=== PATIENT | male | born 1945 | race Caucasian/White ===

== ENCOUNTER 2017-03-01 17:30 | Observation (INO) | payer MEDICARE, OTHER ==
[~2017-03-01] VITALS: Ht 160 cm; Wt 82.1 kg
--- NOTE | ~2017-03-01 | HP ---
PATIENT'S NAME: SHANEL LANDIN [facility] AGE: 71 Y [address] ROOM: [facility] [place] [place], [place] [address] LOCATION: GPCU ADMIT DATE: 03/01/2017 History & Physical DISCHARGE DATE: FAMILY PHYSICIAN: PHYSICIAN, UNKNOWN ATTENDING PHYSICIAN: Jeronimo HOUSTON DATE OF SERVICE: CHIEF COMPLAINT: Acute hypoxic respiratory failure. HISTORY OF PRESENTING ILLNESS: This 71-year-old white male with previous history of end-stage renal disease, on hemodialysis, and diabetes mellitus type 2, was transferred to [facility] from [place] with some vague complaints of malaise, altered mental status, and hypoxia. He first began to feel unwell on Monday. He describes some feelings of weakness and shortness of breath. He failed to show up for his dialysis appointment yesterday because he "just did not feel good." Symptoms persisted and today, he decided to go to the emergency room in [place] for definitive evaluation and management. On his arrival there, he was hypoxic with oxygen saturations in the 80s. This improved with some supplemental oxygen, but he also had a fever. Workup including CBC, chemistries, and chest x-ray were all fairly unremarkable. It was decided to transfer him here for higher level of care, definitive evaluation and management, and Nephrology consultation. On his arrival to the floor, he reports feeling "fine." He states he does not really know why he is here. He denies headache. Denies dizziness or lightheadedness. No chest pain. He denies any significant shortness of breath while lying in bed and no cough. No abdominal pain. His appetite has been good, and he reports feeling quite hungry now. Stools have been regular, and he stooled last yesterday. He has not noticed any blood in his stools or black tarry stools. He does void typically once or twice a day in small amounts. He has not noticed any dysuria, frequency, urgency, or hematuria. MEDICAL ALLERGIES: No known drug allergies. ILLNESSES: 1. End-stage renal disease, on hemodialysis. 2. Diabetes mellitus type 2, insulin dependent. 3. Essential hypertension. 4. Coronary artery disease. 5. Peripheral arterial disease. PATIENT'S NAME: [facility] AGE: 71 Y [address] ROOM: [address] [place], [place] [address] [facility] ADMIT DATE: 03/01/2017 History & Physical DISCHARGE DATE: FAMILY PHYSICIAN: PHYSICIAN, UNKNOWN ATTENDING PHYSICIAN: Jeronimo HOUSTON 6. BPH. 7. Peripheral neuropathy. CURRENT MEDICATIONS: 1. Amlodipine 5 mg p.o. daily. 2. Aspirin 81 mg p.o. daily. 3. PhosLo 667 two tablets p.o. t.i.d. 4. Tums 2 tablets p.o. b.i.d. 5. Coreg 6.25 p.o. b.i.d. 6. Vitamin D3 1000 units p.o. daily. 7. Dextrose tab 16 g p.o. daily p.r.n. 8. Iron 325 mg p.o. daily. 9. Minoa 5/325 one tablet p.o. q.4 hours p.r.n. pain. 10. Insulin NovoLog per sliding scale. 11. Insulin glargine 25 units subcu q.h.s. 12. MiraLax 17 g p.o. daily. 13. Lyrica 75 mg p.o. q.h.s. 14. Crestor 20 mg p.o. q.a.m. FAMILY HISTORY: Significant for colon cancer in his father. Mother had a stroke. SOCIAL HISTORY: He does have a 50+ pack year history of smoking, but he has been quit for about 5 years. No significant history of alcohol use. REVIEW OF SYSTEMS: As per HPI. All other organ systems reviewed and are negative. PHYSICAL EXAMINATION: VITAL SIGNS: Temperature 97.7, pulse 97, respirations 16, blood pressure 120/57. GENERAL: He is very pleasant, cooperative, lying in the bed, in no acute distress. SKIN: Supple, pink, warm, dry. No obvious rashes. HEENT: Otherwise, normocephalic. Sclerae nonicteric. Pupils equal, round, and reactive to light and accommodation. Extraocular movements appear intact. Nasal turbinates normal in appearance. Oropharynx clear. Mucous membranes are pink and moist. NECK: Supple. Plethoric. No masses. No adenopathy. No thyromegaly. No JVD. CHEST: Wall is symmetrical. HEART: Regular without murmurs. There are occasional extrasystoles. LUNGS: Diminished at the bases, but no crackles or wheezes are heard. ABDOMEN: Soft, nontender. Bowel sounds present. No mass or PATIENT'S NAME: SHANEL LANDIN [facility] AGE: 71 Y [address] ROOM: [address] [place], [place] [address] [facility]: [facility] ADMIT DATE: 03/01/2017 History & Physical DISCHARGE DATE: FAMILY PHYSICIAN: PHYSICIAN, UNKNOWN ATTENDING PHYSICIAN: Jeronimo HOUSTON hepatosplenomegaly. and RECTAL: Not done. EXTREMITIES: Display trace pitting edema. No cyanosis. NEUROLOGIC: He is a little hard of hearing, and mentation is slowed, but there are no focal deficits. LABORATORY AND X-RAY DATA: ABG revealed pH of 7.46, pCO2 of 42, pO2 of 73. CBC showed a white blood cell count 7.0, hemoglobin is 9.0, hematocrit 27, platelets 108. Chemistries revealed a BUN and creatinine of 95 and 5.48, sodium and potassium of 136 and 4.9, chloride and CO2 are 96 and 25, glucose was elevated at 526. AST and ALT of 22 and 29, bilirubin is 0.5. Lactate was normal at 1. Cardiac enzymes revealed a troponin of 0.07, CK-MB of 2.4. A 12-lead EKG showed electronic paced rhythm, left bundle branch block. No other acute abnormalities. Chest x-ray showed no acute abnormalities. ASSESSMENT AND PLAN: 1. Acute hypoxic respiratory failure, improved. Oxygen demands have already improved somewhat since the initial presentation. I suspect fluid overload probably related to his missed dialysis appointment. We will encourage good pulmonary hygiene. Continue with some supplemental oxygen and follow on telemetry tonight. 2. Acute encephalopathy. He was reportedly confused at his initial presentation but appears to be back at baseline now. I would attribute this to hypoxic encephalopathy, and we will continue with some supplemental oxygen as above and monitor. We will try to get him up and mobilize him tomorrow, and plan to resume dialysis. 3. End-stage renal disease, on hemodialysis. Plan for hemodialysis tomorrow with Nephrology. He does have some problems with his left AV fistula and was scheduled for a revision with Dr. Greene on Monday. Depending on his clinical progress, we will determine if it is necessary to have Dr. Greene see him while he is inpatient. 4. Diabetes mellitus type 2, insulin dependent. Continue with Levemir at h.s. and sliding scale insulin. 5. Essential hypertension. Appears to be adequately controlled. We will monitor the trend and make adjustments as necessary. 6. Coronary artery disease, clinically stable and otherwise asymptomatic. We will plan to continue with medical therapy and clinical monitoring. We will trend his cardiac enzymes tonight. 7. Deep venous thrombosis prophylaxis. We will utilize pneumatic compression devices, but hold off on heparin or Lovenox in light of the potential for AV fistula manipulation. PATIENT'S NAME: SHANEL LANDIN [facility] AGE: 71 Y [address] ROOM: [place] [address] [facility] ADMIT DATE: 03/01/2017 History & Physical DISCHARGE DATE: FAMILY PHYSICIAN: PHYSICIAN, UNKNOWN ATTENDING PHYSICIAN: Jeronimo HOUSTON MD JONATHAN MURRAY/wade /[id number] D: T: 805 HISTORY & PHYSICAL
--- NOTE | ~2017-03-01 | DS ---
PATIENT'S NAME: SHANEL LANDIN [facility] AGE: 71 Y [address] ROOM: [address] [place], [place] [address] LOCATION: GPCU ADMIT DATE: 03/01/2017 Discharge Summary DISCHARGE DATE: 03/03/2017 FAMILY PHYSICIAN: ATTENDING PHYSICIAN: Jeronimo HOUSTON FINAL DIAGNOSES: 1. Acute hypoxic respiratory failure. 2. Nocturnal hypoxia, which is present on admission. 3. Fever of unknown origin. 4. Diabetes mellitus type 2, poorly-controlled. 5. Lgcbdu-qk-qhbgajv disease. 6. Essential hypertension. HISTORY OF PRESENT ILLNESS: Please see the history and physical dictated by Dr. Gonzalez for details of admission. LABORATORY DATA: On the day of discharge, sodium 143, potassium 4.4, chloride 107, CO2 27, BUN 66, creatinine 4.2, and magnesium 2.7. Hemoglobin on admission was 9.9, went down to 7.8, and then on discharge day was 9.4, and platelet count on admission was 110. Procalcitonin on admission was 0.27. MICROBIOLOGY DATA: Blood cultures were negative. X-RAY DATA: Chest x-ray on the day of discharge showed some atelectasis in left base, but no acute findings. HOSPITAL COURSE: The patient was admitted on an observation status after being transferred from [place]. He had presented there short of breath and with acute hypoxic respiratory failure and had been started on oxygen. He had missed his dialysis on Monday due to a viral illness and he also noted that he had some coughing. On admission, his chest x-ray really did not show very much. He was requiring oxygen. He did receive dialysis on the and tolerated it without any difficulty. His blood sugars were significantly elevated and adjustments were made in his Levemir dose as well as he was started on NovoLog with meals which was new for him. He was still requiring oxygen at that time. Decision was made to do an overnight trend oximetry and a walking oximetry the next morning. The next morning, he had been weaned off the oxygen. His overnight trend ox did show that he did require oxygen. Upon discussing this with him, he did then share that he already has CPAP and a concentrator at home. It was felt that he was stable for discharge after he was seen by the cosmetology educator. He is discharged to home. He is to follow up with Dr. Mary in [place] on MondayMarch 06 at 10 a.m. MEDICATIONS: PATIENT'S NAME: SHANEL LANDIN [facility] AGE: 71 Y [address] ROOM: [address] [place], [place] [address] LOCATION: GPCU ADMIT DATE: 03/01/2017 Discharge Summary DISCHARGE DATE: 03/03/2017 FAMILY PHYSICIAN: ATTENDING PHYSICIAN: Jeronimo HOUSTON 1. Coreg 6.25 mg twice daily. 2. Vitamin D 1000 units daily. 3. Feosol 325 mg daily. 4. Humalog FlexPen 10 units 3 times daily with meals. 5. Norvasc 5 mg daily. 6. Aspirin 81 mg daily. 7. PhosLo 2 pills 3 times daily with meals. 8. Tums 2 tablets twice daily. 9. Lantus SoloSTAR 32 units at bedtime. 10. MiraLAX 17 g daily. 11. Lyrica 75 mg at bedtime. 12. Crestor 20 mg daily. 13. CPAP at night and he is encouraged to use this as well as the oxygen. 14. Severance 5/325 one every 4 hours as needed. PROGNOSIS: Overall, prognosis at discharge was good. DANIELA CHAUDHARI MD LAW/modl /[id number] CC: Gregg Mary MD-Student d: 03/04/17 0153 t: 03/08/17 1815, DISCHARGE SUMMARY
--- NOTE | ~2017-03-01 | CON ---
PATIENT'S NAME: [facility] AGE: 71 Y [address] ROOM: [place] [address] LOCATION: GPCU ADMIT DATE: 03/01/2017 Consultation DISCHARGE DATE: FAMILY PHYSICIAN: PHYSICIAN, UNKNOWN ATTENDING PHYSICIAN: Jeronimo HOUSTON DATE OF CONSULTATION: 03/02/2017 REFERRING PHYSICIAN: David Burnett REQUESTING PHYSICIAN: Hospitalist. REASON FOR CONSULTATION: End-stage renal failure. The patient is due for dialysis treatment. 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 He is currently on hemodialysis 3 times a week on Tuesdays, , and Saturdays. The patient reports that last Monday and Monday, he did not feel well. He has had flu-like symptoms and some nausea, vomiting, and diarrhea. He missed his dialysis treatment. He came in to the emergency room with feeling tired, and he was diagnosed with hypoxic respiratory failure. Oxygen demand did increase. He, however, received oxygen therapy at the emergency room and he did improve. I am asked to see him because he is due for his dialysis treatment. REVIEW OF SYSTEMS: GENERAL: He denies any fever at this time. He is tired. HEENT: Denies any sore throat or sinus congestion. CARDIOVASCULAR: Denies any chest pain, dyspnea on exertion. RESPIRATORY: He has some exertional dyspnea. GASTROINTESTINAL: Poor appetite and some nausea. GENITOURINARY: Denies any dysuria. MUSCULOSKELETAL: Denies any joint pain or swelling. SKIN: Denies any rash or pruritus. IMMUNOLOGIC: Denies any allergies or hay fever. LYMPHATIC: Denies any lymph node enlargement. HEMATOLOGIC: Denies any easy bruising. ALLERGIES: NO KNOWN DRUG ALLERGIES. MEDICATIONS: 1. Amlodipine 5 mg a day. 2. Ferrous sulfate 325 mg a day. PATIENT'S NAME: [facility] AGE: 71 Y [address] ROOM: [place] [address] LOCATION: GPCU ADMIT DATE: 03/01/2017 Consultation DISCHARGE DATE: FAMILY PHYSICIAN: PHYSICIAN, UNKNOWN ATTENDING PHYSICIAN: Jeronimo HOUSTON 3. Glucose p.r.n. 4. NovoLog FlexPen 5-15 units subcu 4 times a day. 5. Lantus insulin 25 units injection at bedtime. 6. PhosLo 2 pills three times a day with food. 7. Carvedilol 6.25 mg twice a day. 8. Lyrica 75 mg at bedtime. 9. Vitamin D 1000 International Units. 10. Rosuvastatin 20 mg a day. 11. Calcium carbonate 2 tablets twice a day. 12. Oxygen 1 L per nasal cannula. PAST MEDICAL HISTORY: Diabetes mellitus, and history of hemodialysis, coronary artery disease, peripheral vascular disease, benign prostatic hyperplasia, peripheral neuropathy, anemia of chronic kidney disease. PAST SURGICAL HISTORY: Right upper arm primary brachiocephalic AV fistula placed by Dr. Baker in September 2014. Cardiac catheterization and stent placement, left forearm primary radiocephalic AV fistula placement. FAMILY HISTORY: No family history of kidney disease or dialysis. SOCIAL HISTORY: The patient is a retired lópez. He lives at home with his . He quit tobacco several years ago. He has 40-pack history of smoking. No history of drinking alcohol. His is wheelchair-bound and he takes care of his at home. PHYSICAL EXAMINATION: GENERAL: This 71-year-old white male, lying in the dialysis chair not in acute distress. VITAL SIGNS: Temperature 98.4, pulse 78, systolic blood pressure 121 and diastolic 60, respiratory rate of 20. HEENT and NECK: Head, normocephalic. Pupils are round and equal. Normal eyelid and conjunctivae. Oral cavity clear. Moist mucosa. Trachea is central. No thyromegaly. Unable to evaluate jugular venous pulsation. HEART: Sounds are audible in all areas without any gallop or murmur. There is no peripheral rub. Pulses regular in rhythm. LUNGS: Bibasilar rhonchi and diminished breath sounds in the bases. LABORATORY DATA: WBC 5.0, hemoglobin 7.8, hematocrit 24.7, and platelet count of 110. Glucose 292, BUN of 100, creatinine 5.7, sodium 140, potassium 4.4, chloride 92, PATIENT'S NAME: SHANEL LANDIN [facility] AGE: 71 Y [address] ROOM: [place] [address] LOCATION: GPCU ADMIT DATE: 03/01/2017 Consultation DISCHARGE DATE: FAMILY PHYSICIAN: PHYSICIAN, UNKNOWN ATTENDING PHYSICIAN: Jeronimo HOUSTON bicarb 29, calcium 7.5, albumin of 2.6, phosphorus of 2.1. ASSESSMENT: 1. Hypoxia. The patient came in the hospital. Chest x-ray is unremarkable. He did miss his dialysis treatment. I am assuming this hypoxia is most likely because of fluid overload. 2. Anemia of chronic kidney disease. 3. Diabetes mellitus. 4. Hypertension. 5. Diabetes neuropathy. PLAN: I will plan to dialyze him as soon as possible. We will try to ultrafiltrate at least 3 L of fluid. I did educate the patient that missing dialysis could be dangerous and life-threatening. We will check his iron studies. He will receive his routine erythropoietin therapy. I would like to thank the hospitalist for allowing me to participate in this patient's care. M MD RAMON JOHNSON/wade /[id number] d: 03/02/17 1517 t: 03/15/17 1557, CONSULTATION REPORT
--- NOTE | ~2017-03-01 | PUL ---
PATIENT'S NAME: SHANEL LANDIN [facility] AGE: 71 Y [address] ROOM: [address] [address] LOCATION: GPCU ADMIT DATE: 03/01/2017 Pulmonary DISCHARGE DATE: 03/03/2017 FAMILY PHYSICIAN: GENI WHITTINGTON ATTENDING PHYSICIAN: Jeronimo HOUSTON NAME OF PROCEDURE: Overnight Pulse Oximetry DATE OF PROCEDURE: March 02 to March 03, 2017 REASON FOR EXAM: Nocturnal hypoxemia RESULTS: The test was performed on room air. The recording time was 8 hours and 4 seconds, with a total valid sampling time of 6 hours, 57 minutes and 48 seconds. The highest pulse was 83, lowest pulse was 62, with a mean pulse of 71. The highest SpO2 was 98%, lowest SpO2 was 68%, with a mean SpO2 of 89.1%. The patient spent 2 hours, 57 minutes and 36 seconds with SpO2 less than 89%, representing 42.5% of the total sleep time. The desaturation event index was elevated at 36.2. PHYSICIAN INTERPRETATION: The patient has evidence of significant nocturnal hypoxia and would qualify for supplemental oxygen as per Medicare criteria. However, because of the severity of his nocturnal hypoxia with an elevated saturation event index a sleep study is recommended at this time. MD RAFAEL JAMISON/marilu /[id number] dtt: 03/07/17 1615 , JOE BHAGAT dtd: 03/07/17 1515
[~2017-03-01 17:30] MED LIST: ASPIRIN LO-DOSE81 MG PO; CATAPRES0.3 M1 PO; COREG6.25 MG PO; COUMADIN3 MG PO; CPAP INH; CRESTOR20 MG PO; FEOSOL325 MG PO; GLUCAGON/GLUCAGE1 MG SUB-Q; GLUCOSE4 GM PO; LANTUS SOL100 UNIT/1 SUB-Q; LASIX80 M1 PO; LEVEMIR100 UNIT/1 SUB-Q; LOPRESSOR25 MG PO; LYRICA 75MG CAP75 MG PO; LYRICA75 MG PO; MIRALAX17 GM PO; NORCO 5-325 TA1 EACH PO; NORVASC5 MG PO; NOVOLOG FL100 UNIT/1 SUB-Q; NOVOLOG100 UNIT/M SUB-Q; OXYGEN INH; OXYGEN M-15 INH; PHOSLO667 MG PO; PROTONIX40 MG PO; TRADJENTA5 MG PO; TUMS REGULAR ST1 TAB PO; TYLENOL EXTRA500 MG PO; VITAMIN D1000 UNIT PO
--- NOTE | 2017-03-01 20:46 | NUR ---
71 Y/O MALE ADMITTED FOR HYPOXIA, FEVER, AND HYPERGLYCEMIA. PT TRANSPORTED FROM [facility]. [facility] MEDICAL & SURGICAL HISTORY - SHORT TERM MEMORY LOSS, DMII-INSULIN, PT STATES THAT HIS BGLU'S ARE NORMALLY 300-400'S EVERY MORNING AND THAT HE CHECKS HIS BGLU'S TID-QID. RENAL DISEASE, FISTULA & DIALYSIS T/TH/MON, DIABETIC RETINOPATHY, MAC DEGEN, SLEEP APNEA USES C-PAP W/ 2L O2 AT [facility], COPD, FORMER SMOKER X55 YRS, QUIT IN 2010, PACER-[employer], CARDIAC. PT STATES HE IS UNSTABLE ON HIS FEET, HAS NOT FALLEN YET, BUT DOES GET LIGHT HEADED. ALYCE, FISTULA LT ARM, PTCA WITH STENTS, PACER. SEE ADM ASSESMENT PART 1 FOR COMPLETE HISTORY REPORT GIVEN TO PT PRIMARY CARE NURSE VIVIANE OSEI ADM EDUC COMPLETED
--- NOTE | 2017-03-02 04:05 | NUR ---
Patient A/Ox3. BLACKFEET. VSS wear 2L w/Cpap at HS. One assist with walker gaitbelt. No complaints. Lungs clear. Bowel sounds present. Hemo Diaylsis patient skipped on d/t not feeling well. Fistula to Lt upper arm, bruit and thrill present. Consult Hoahaoism in am. AC/HS accu checks. IV to Rt forearm saline locked. Plan to have Hoahaoism see possible diaylsis today.
[2017-03-02 05:02] LABS: BASOPHIL % 0.6 %; EOSINOPHIL # 0.3 K/uL (0.0-0.5); EOSINOPHIL % 5.4 %; HEMATOCRIT 24.7 % (37.0-53.0); IMMATURE GRANULOCYTE % 0.6 %; LYMPHOCYTE % 20.7 %; MCHC 31.6 gm/dL (32.0-36.5); MCV 101.2 fl (83.0-98.0); MONOCYTE # 0.3 K/uL (0.0-1.0); MONOCYTE % 5.6 %; MPV 11.1 fl (9.4-12.4); NEUTROPHIL # (ANC) 3.4 K/uL (1.4-9.0); NEUTROPHIL % 67.1 %; NRBC % 0 /100WBC (0-0.00); PLATELET COUNT 110 K/uL (150-450); RBC 2.44 M/uL (3.50-5.50); RDW-CV 14.7 % (11.9-14.6)
[2017-03-02 05:07] LABS: HEMOGLOBIN 7.8 g/dL (11.0-16.0)
[2017-03-02 05:22] LABS: ALBUMIN 2.6 gm/dL (3.5-5.0); ANION GAP 12.4 (10.0-19.0); CALCIUM 7.5 mg/dL (8.5-10.5); PHOSPHORUS 3.1 mg/dL (2.5-4.9); POTASSIUM 4.4 mMol/L (3.7-5.1)
[2017-03-02 05:27] LABS: CREATININE 5.7 mg/dL (0.6-1.3)
--- NOTE | 2017-03-02 14:20 | NUR ---
Diabetes Consult: Stopped to visit with patient about his diabetes and assess educational needs. Patient has been talking on his phone, with both attempt to visit. A1C is 11.7%. Will have CDE attempt to visit again tomorrow.
--- NOTE | 2017-03-02 16:17 | NUR ---
Introduced self and care management services to patient, friend who lives with him and friends at bedside. Lives in [place]. Plans on going home on discharge, denies needs right now. Will follow.
--- NOTE | 2017-03-02 16:24 | NUR ---
Significant Event: A/Ox3. [id number]. P-70s. Afebrile. 1L NC with saturations in the low to mid 90s. Dual paced. Up with SBA. Had 3L of in dyalysis. L) UA fistula with bruit and thrill noted. Pleasant and cooperative with cares.
[2017-03-03 03:29] LABS: ANION GAP 13.4 (10.0-19.0); CALCIUM 8.3 mg/dL (8.5-10.5); CREATININE 4.2 mg/dL (0.6-1.3); MAGNESIUM 2.7 mg/dL (1.3-2.6); POTASSIUM 4.4 mMol/L (3.7-5.1)
--- NOTE | 2017-03-03 05:29 | NUR ---
Significant Event: A/O x3. [place]. VSS on RA and occassionally 1L O2. HR's in 70s with pacer. Had 8 beats VTACH at 0300. 12 lead EKG with labs ordered. No new orders from MD. HR back to 70s. SBP's in 100s-140s. Dialysis patient with fistula to L) upper arm. Bruit and thrill present. Ambulates SBA. 3L off with dialysis yesterday. AC/HS accu checks, 2100 BS 400's, 12units novolog/30 levemir. No complaints. Follow up: Possibly home today.
[2017-03-03] MEDS ORDERED: HUMALOG MI100 UNIT/5 SUB-Q (10:46)
[2017-03-03] MEDS ORDERED: HUMALOG100 UNIT/3 SUB-Q (10:48)
--- NOTE | 2017-03-03 11:29 | NUR ---
[facility] note; [id number] Met with patient and girlfriend Rimma to do some Diabetes Education. Current A1C is 11.7 %, discussed at length the need to improve overall blood sugar control to assist in reducing complications related to diabetes, heart, eyes, kidneys and nerves. See Diabetes Survival Skills Checklist that was completed with much detail which is attached to the chart, all topics discussed. Emphasized importance of follow up with MD and offered Diabetes Education on out patient bases for on-going assistance with insulin adjustments and diabetes care. Reviewed carb counting, low sodium, "healthy eating" principals. Girlfrienrina Shanks states that patient doesn't always listen to her recommendations. Patient is reminded to make sure the timing of Humalog insulin in relationship to eating is appropriate, meaning to take insulin 15 mins prior to the meal, so the action of insulin will be appropriate. Patient admits to skipping doses of insulin, uses a pen device, and patients states that he wants to "live life" also. Recommendations made regarding lifestyle changes. Phone number provided and a copy of the Diabetes Survival Skills checklist is given to patient. Answered all questions and patient is anxious to go home, preparing for dismissal at this time.
--- NOTE | 2017-03-03 13:25 | NUR ---
DISCHARGE: A/O X3. HARD OF HEARING AND VISUALLY IMPAIRED. PIV REMOVED FROM RIGHT FA. UP AD NIKKY. DENIES PAIN. FISTULA TO LEFT FA. DISCHARGE INSTRUCTIONS REVIEWED. MEDICATION ADJUSTMENTS DISCUSSED. POLITICAL ANTHROPOLOGIST SPOKE WITH PATIENT. HOME O2 SET UP NOT NEEDED BECAUSE PATIENT ALREADY HAS A CONCENTRATOR AT HOME. F/U APPOINTMENT DISCUSSED. NO FURTHER QUESTIONS. TAKEN TO [facility] BY WHEELCHAIR @ 1220 BY LITTLE.
== END 2017-03-03 12:30 | disposition disaster alternative care site (69) ==
LOC: GPCU 19:10
PROVIDERS: Family Medicine; ADMIT Internal Medicine
DX: J96.01 Acute respiratory failure with hypoxia (principal); R09.02 Hypoxemia; R50.9 Fever, unspecified; D64.9 Anemia, unspecified; E11.22 Type 2 diabetes mellitus with diabetic chronic kidney disease; E11.42 Type 2 diabetes mellitus with diabetic polyneuropathy; I12.0 Hypertensive chronic kidney disease with stage 5 chronic kidney disease or end stage renal disease; N18.6 End stage renal disease; I25.10 Atherosclerotic heart disease of native coronary artery without angina pectoris; I73.9 Peripheral vascular disease, unspecified; Z87.891 Personal history of nicotine dependence; Z98.890 Other specified postprocedural states; Z99.2 Dependence on renal dialysis; Z79.4 Long term (current) use of insulin; Z79.82 Long term (current) use of aspirin; Z79.899 Other long term (current) drug therapy
CPT/HCPCS: G0378

== ENCOUNTER → 2017-03-16 | Outpatient (CLI) | payer MEDICARE, OTHER ==
[~2017-03-16] MED LIST changes: +HUMALOG MI100 UNIT/5 SUB-Q; +HUMALOG100 UNIT/3 SUB-Q
[2017-03-16 14:53] LABS: ANION GAP 15.4 (10.0-19.0); POTASSIUM 5.4 mMol/L (3.7-5.1)
[2017-03-16 14:55] LABS: INR - (THERAPEUTIC) 0.92 (0.92-1.07); PROTIME 9.7 SECONDS (9.8-11.4)
[2017-03-16 15:02] LABS: CALCIUM 7.2 mg/dL (8.5-10.5); CREATININE 5.1 mg/dL (0.6-1.3)
== END | disposition disaster alternative care site (69) ==
LOC: GOPD 12:00
PROVIDERS: Radiology Diagnostic Radiology
PROC: B51VYZZ Fluoroscopy of Other Veins using Other Contrast (ICD-10-PCS; principal; 2017-03-16)
DX: Z45.2 Encounter for adjustment and management of vascular access device (principal); E11.21 Type 2 diabetes mellitus with diabetic nephropathy; E11.40 Type 2 diabetes mellitus with diabetic neuropathy, unspecified; N18.6 End stage renal disease; D63.1 Anemia in chronic kidney disease; Z99.2 Dependence on renal dialysis; Z79.4 Long term (current) use of insulin
CPT/HCPCS: C1725; C1769; C1876; C1887; J1644; J7030

== ENCOUNTER 2017-07-28 10:09 | Outpatient (CLI) | payer MEDICARE, OTHER ==
[~2017-07-28] VITALS: Ht 160 cm; Wt 72.2 kg
--- NOTE | ~2017-07-28 | OR ---
[facility] 71 [facility] [address] ROOM: [place] [address] [facility] AD[facility] DATE: 07/28/2017 OR/Procedure Report DISCHARGE DATE: FAMILY PHYSICIAN: GENI WHITTINGTON MD ATTENDING PHYSICIAN: SIMONE GREENE SURGEON: Simone Greene MD GROUP LEADER WAFER POLISHING: DATE OF PROCEDURE: 07/28/2017 PREOPERATIVE DIAGNOSIS: Poorly functioning left arm AV fistula. POSTOPERATIVE DIAGNOSIS: In-stent occlusion. RADIO REPAIRMAN: label stitcher staff. ANESTHESIA: MAC with local. ESTIMATED BLOOD LOSS: 20 mL. OPERATIVE FINDINGS: Complete occlusion of the previously placed stents by Interventional Radiology, recannulizer in the case. DESCRIPTION OF PROCEDURE: The patient was brought to Appellate Conferee, placed supine on the Appellate Conferee table, prepped and draped in a sterile manner. Preoperative time-out was performed. The patient received preoperative antibiotics. We used ultrasound guidance to gain access to the left arm brachiocephalic AV fistula. We then used a micropuncture kit followed by micropuncture wire. We exchanged using Seldinger technique for a 5-Faroese short sheath. We performed a fistulogram, which showed that the distal axillary stent was completely occluded. We were able to cross the lesion, with 0.018, through a wire. We gave 5000 units of heparin. We did balloon angioplasty with a 6 mm x 150 balloon with good relief of the stenosis. The most distal central portion would require an 8 x 40 Abraham balloon to angioplasty. These stents were reopened. Heparin was reversed with protamine. The sheath was removed and a single 4-0 nylon stitch was placed. The patient will require creation in the fistula as these stents will re-occlude again. The patient tolerated the procedure well, transferred to the recovery room and home later that day. MD ALISHA CALDERONM/yongl PATIENT'S NAME: [facility] AGE: 71 Y [address] ROOM: [place] [address] LOCATION: [facility] ADMIT DATE: 07/28/2017 OR/Procedure Report DISCHARGE DATE: FAMILY PHYSICIAN: GENI WHITTINGTON MD ATTENDING PHYSICIAN: SIMONE GREENE /[id number] d: 07/28/173 t: 08/03/17 1732, OPERATIVE SUMMARY
[2017-07-28 11:21] LABS: BASOPHIL % 0.6 %; EOSINOPHIL # 0.3 K/uL (0.0-0.5); EOSINOPHIL % 3.8 %; HEMATOCRIT 31.7 % (37.0-53.0); HEMOGLOBIN 10.7 g/dL (11.0-16.0); IMMATURE GRANULOCYTE # 0.1 K/uL (0.0-0.3); IMMATURE GRANULOCYTE % 0.7 %; LYMPHOCYTE # 1.1 K/uL (0.8-4.0); LYMPHOCYTE % 15.5 %; MCH 35.1 pg (27.0-34.0); MCHC 33.8 gm/dL (32.0-36.5); MCV 103.9 fl (83.0-98.0); MONOCYTE # 0.8 K/uL (0.0-1.0); MONOCYTE % 11.3 %; MPV 10.8 fl (9.4-12.4); NEUTROPHIL # (ANC) 4.6 K/uL (1.4-9.0); NEUTROPHIL % 68.1 %; NRBC % 0 /100WBC (0-0.00); PLATELET COUNT 122 K/uL (150-450); RBC 3.05 M/uL (3.50-5.50); RDW-CV 16.4 % (11.9-14.6); WBC 6.8 K/uL (4.0-11.0)
[2017-07-28 11:36] LABS: ALBUMIN 3.2 gm/dL (3.5-5.0); ANION GAP 14.1 (10.0-19.0); CALCIUM 7.8 mg/dL (8.5-10.5); POTASSIUM 5.1 mMol/L (3.7-5.1); TOTAL BILIRUBIN 0.4 mg/dL (0.0-1.5); TOTAL PROTEIN 7.2 g/dL (6.0-8.4)
[2017-07-28 11:44] LABS: CREATININE 6.3 mg/dL (0.6-1.3)
== END 2017-07-28 14:00 | disposition disaster alternative care site (69) ==
LOC: GPOC 10:09 → GPCU 10:09 → GPOC 14:00
PROVIDERS: Surgery Vascular Surgery
PROC: B51WYZZ Fluoroscopy of Dialysis Shunt/Fistula using Other Contrast (ICD-10-PCS; principal; 2017-07-28)
DX: T82.868A Thrombosis due to vascular prosthetic devices, implants and grafts, initial encounter (principal); Z79.4 Long term (current) use of insulin
CPT/HCPCS: C1725; C1769; J0690; J1644; J2001; J2405; J2720; J3010; J7030

== ENCOUNTER → 2017-08-02 | Outpatient (CLI) | payer MEDICARE, OTHER ==
[2017-08-02 13:59] LABS: BASOPHIL % 0.6 %; EOSINOPHIL # 0.2 K/uL (0.0-0.5); EOSINOPHIL % 3.2 %; HEMATOCRIT 31.8 % (37.0-53.0); HEMOGLOBIN 10.7 g/dL (11.0-16.0); IMMATURE GRANULOCYTE # 0.1 K/uL (0.0-0.3); LYMPHOCYTE % 15.1 %; MCH 35.2 pg (27.0-34.0); MCHC 33.6 gm/dL (32.0-36.5); MCV 104.6 fl (83.0-98.0); MONOCYTE # 0.8 K/uL (0.0-1.0); MONOCYTE % 11.6 %; MPV 10.4 fl (9.4-12.4); NEUTROPHIL # (ANC) 4.7 K/uL (1.4-9.0); NEUTROPHIL % 68.5 %; NRBC % 0 /100WBC (0-0.00); PLATELET COUNT 130 K/uL (150-450); RBC 3.04 M/uL (3.50-5.50); RDW-CV 16.1 % (11.9-14.6); WBC 6.9 K/uL (4.0-11.0)
== END ==
LOC: GOPD 08-01 14:00
PROVIDERS: Nurse Practitioner
DX: E11.22 Type 2 diabetes mellitus with diabetic chronic kidney disease (principal); N18.6 End stage renal disease; I25.10 Atherosclerotic heart disease of native coronary artery without angina pectoris; I12.0 Hypertensive chronic kidney disease with stage 5 chronic kidney disease or end stage renal disease
CPT/HCPCS: C1750; J1644; J2001; J2250; J2405; J3010